=== PATIENT | female | born 1975 | race Hispanic/Latino ===

== ENCOUNTER 2022-07-27 08:54 | Emergency (ER) | payer OTHER ==
--- NOTE | 2022-07-27 09:13 | ER ---
Nurse's Notes [facility] Name: Irasema Leo Age: 47 yrs Sex: Female : 1975 Arrival Date: 07/27/2022 Time: 08:57 Bed Treatment Private MD: Diagnosis: Person with feared health complaint in whom no diagnosis is made Presentation: 07/27 09:10 Chief complaint: Patient states: felt a bug in her left ear. Coronavirus screen: At this time, the client does not indicate any symptoms associated with coronavirus-19. Ebola Screen: Patient negative for fever greater than or equal to 101.5 degrees Fahrenheit, and additional compatible Ebola Virus Disease symptoms Patient denies exposure to infectious person. Patient denies travel to an Ebola-affected area in the 21 days before illness onset. No symptoms or risks identified at this time. Initial Sepsis Screen: Does the patient meet any 2 criteria? No. Patient's initial sepsis screen is negative. Does the patient have a suspected source of infection? No. Patient's initial sepsis screen is negative. Risk Assessment: Do you want to hurt yourself or someone else? Patient reports no desire to harm self or others. Onset of symptoms was July 27, 2022. 09:10 Method Of Arrival: Ambulatory iw 09:10 Acuity: RAMONE 4 iw ED Course: 08:57 Patient arrived in ED. am2 08:57 Joaquin Villar DO is Attending Physician. ms3 09:10 Carolann Read RN is Primary Nurse. iw 09:10 Triage completed. iw 09:12 Joaquin Gtz DO is Referral Physician. ms3 Administered Medications: No medications were administered Outcome: 09:12 Discharge ordered by . ms3 09:32 Patient left the ED. iw Signatures: Carolann Read RN RN Irasema Constantino am2 Joaquin Villar DO DO ms3
--- NOTE | 2022-07-27 09:13 | EDPHYS ---
Physician Documentation [facility] Name: Irasema Leo Age: 47 yrs Sex: Female : 1975 Arrival Date: 07/27/2022 Time: 08:57 Bed Treatment Private MD: ED Physician Joaquin Villar HPI: 07/27 09:13 This 47 yrs old Female presents to ER via Ambulatory with complaints of ms3 Foreign Body In Ear. 09:13 47-year-old female with no past medical history presents after waking up the site of an ms3 insect in her left ear. Patient denies pain. Patient denies any alleviating or inciting factors. Patient states she had her son blow smoke in her ear to attempt to get the insect out.. ROS: 09:13 Constitutional: Negative for fever, and chills. ms3 09:13 Cardiovascular: Negative for chest pain, and palpitations. Respiratory: Negative for shortness of breath, cough, wheezing, and pleuritic chest pain, Abdomen/GI: Negative for abdominal pain, nausea, vomiting, diarrhea, and constipation, MS/Extremity: Negative for injury and deformity, Skin: Negative for injury, rash, and discoloration. 09:13 ENT: Positive for foreign body sensation. 09:13 All other systems are negative. Exam: 09:13 Constitutional: This is a well developed, well nourished patient who is awake, alert, ms3 and in no acute distress. Head/Face: Normocephalic, atraumatic. ENT: Nares patent. No nasal discharge, no septal abnormalities noted. Tympanic membranes are normal and external auditory canals are clear. Oropharynx with no redness, swelling, or masses, exudates, or evidence of obstruction, uvula midline. Mucous membranes moist. Neck: Trachea midline, no cervical lymphadenopathy. Supple, full range of motion without nuchal rigidity, or vertebral point tenderness. No Meningismus. Chest/axilla: Normal chest wall appearance and motion. Nontender with no deformity. Cardiovascular: Regular rate and rhythm with a normal S1 and S2. No gallops, murmurs, or rubs. Normal PMI, no JVD. No pulse deficits. Respiratory: Lungs have equal breath sounds bilaterally, clear to auscultation and percussion. No rales, rhonchi or wheezes noted. No increased work of breathing, no retractions or nasal flaring. Abdomen/GI: Soft, non-tender, with normal bowel sounds. No distension or tympany. No guarding or rebound. No evidence of tenderness throughout. Skin: Warm, dry with normal turgor. Normal color with no rashes, no lesions, and no evidence of cellulitis. MS/ Extremity: Pulses equal, no cyanosis. Neurovascular intact. Full, normal range of motion. Psych: Awake, alert, with orientation to person, place and time. Behavior, mood, and affect are within normal limits. MDM: 09:12 Patient medically screened. ms3 09:13 Data reviewed:. Data reviewed: and as a result, I will discharge patient. ED course: No ms3 insect seen and left ear canal. Left ear was irrigated with normal saline with hydroperoxide. Reexamination of the ear does not reveal foreign body in the ear. Patient follow-up Dr. Gtz in 2 to 3 days. Patient understands agrees with plan. All questions were answered. Return precautions discussed include worsening symptoms, or any other concerns. Administered Medications: No medications were administered Disposition Summary: 07/27/22 09:12 Discharge Ordered Location: Home ms3 Condition: Stable ms3 Diagnosis - Person with feared health complaint in whom no diagnosis is made ms3 Followup: ms3 - With: Joaquin Gtz DO - When: 2 - 3 days - Reason: Discharge Instructions: - Discharge Summary Sheet ms3 - Ear Foreign Body, [id number] ms3 Forms: - Medication Reconciliation Form ms3 - Thank You Letter ms3 - Antibiotic Education ms3 - Work release form iw - Prescription Opioid Use ms3 Signatures: Joaquin Villar DO DO ms3
== END 2022-07-27 09:32 | disposition home or self-care (01) ==
LOC: ER 08:54
DX: Z71.1 Person with feared health complaint in whom no diagnosis is made (principal)
CPT/HCPCS: 99281

== ENCOUNTER 2023-08-27 14:59 | Emergency (ER) | payer OTHER ==
--- OUTSIDE RECORDS SUMMARY | 2023-08-27 15:03 | XMS REPORT | Continuity of Care Document ---
:1975 Author Organization [facility] t Address [address] [facility]. [address] [place] [address] Care Team Providers Name Role Phone Alexa Kim MD Primary Care Physician MD DANIELLA BUTT Attending Clinician Unavailable RIMA VASQUEZ Attending Clinician Unavailable ARNIE BELLE Attending Clinician Unavailable Florencio So Attending Clinician [phone] Valerie Tay Attending Clinician Unavailable Iraida Andrews Attending Clinician Unavailable Status, Fax Attending Clinician Unavailable Rosalina Bell Attending Clinician Unavailable Alondra Zamora Attending Clinician Unavailable Daly Baez Attending Clinician Unavailable Nohemy Trimble Attending Clinician [phone] Kimberlee Walls Attending Clinician [phone] Brandie Guido Attending Clinician Unavailable Virginia Sahu Attending Clinician Unavailable Low Patterson Attending Clinician Unavailable MD DANIELLA BUTT Admitting Clinician Unavailable DANIELLA BUTT Admitting Clinician Unavailable Florencio So Unavailable [phone] Nohemy Trimble Unavailable [phone] Payers Payer Name Policy Type Policy Number Effective Date Expiration Date S our Primary [id number] [facility] 00:00:00 00:00:00 [facility] Primary CI [id number] [address] [facility] 00:00:00 00:00:00 [facility] Problems Condition Condition Condition Status Onset Resolution Last Treating Co mments Source Name Details Category Date Date Treatment Clinician Date Hypokalemi Hypokalemi Disease Active M ethodi a a 6-10 st 00:00: Hospita 00 l Alcohol Alcohol Disease Active Methodi induced induced 6-10 st acute acute 00:00: Hospita pancreatit pancreatit 00 l is is Alcohol Alcohol Disease Active Methodi withdrawal withdrawal 6-10 st delirium delirium 00:00: Hospit a 00 l RUQ pain Condition Active 2018-112019-10-05 Saray, [facility] 1-14 08:03:05 Florencio Communginny 00:00: Mitch ty 00 Health Cough Condition Active 2018-112019-09-23 Saray, [facility] chronic 1-05 19:33:27 Arnold Communi 00:00: Mitch ty 00 Health Trichomona Condition Active 2018-112019-09-23 Rolando Trimble l 0-30 15:36:03 Nohemy Coelho vulvovagin 00:00: ty itis 00 Health Weight Condition Active 2018-112019-09-11 Melinda Trimble gacy loss 0-24 16:06:26 Nohemy Coelho abnormal 00:00: ty 00 Health Positive Condition Active 2018-112019-09-11 Papito Trimbleacy depression 0-24 16:06:26 Nohemy Com quirino screening 00:00: ty 00 Health Screening Condition Active 2018-112019-09-11 Rolando Trimble for anemia 0-24 16:06:26 Nohemy Com quirino 00:00: ty 00 Health Screening Condition Active 2018-112019-09-11 Rolando Trimble for 0-24 16:06:26 Nohemy Coelho thyroid 00:00: ty disorder 00 Health Screening, Condition Active 2018-112019-09-11 Atilio [facility] diabetes 0-24 16:06:26 Nohemy Commu ni mellitus 00:00: ty 00 Health Screening, Condition Active 2018-112019-09-11 Atilio [facility] cervical 0-24 16:06:26 Nohemy Commu ni cancer 00:00: ty 00 Health Screening Condition Active 2018-112019-09-11 Atilio [facility] mammogram 0-24 16:06:26 Nohemy Comm uni 00:00: ty 00 Health Std Condition Active 2018-112019-09-11 Melinda Trimble gacy screening 0-24 16:06:26 Nohemy Comm uni 00:00: ty 00 Health Slab Miller Operator well Condition Active 2018-2019-09-11 Rolando Trimble woman exam 0-24 16:06:26 Nohemy Com quirino 00:00: ty 00 Health Allergies, Adverse Reactions, Alerts Allergy Allergy Status Severity Reaction(s) Onset Inactive Treating Comm ents Source Name Type Date Date Clinician Penicill Propensi Active Swelling Throat Meth ronnell ins ty to 5-[address] adverse 00:00: Hospita reaction 00 l s to drug PENICILL Drug Active High Hives and 2018-11 [place] y [place] allergy Criticali swelling, 0-24 Com quirino (disorde ty stops 00:00: ty r) breathing 00 Health Social History Social Habit Start Date Stop Date Quantity Comments Source History of tobacco Smokes tobacco Me thodist use daily Hospital Sexual orientation Method ist Hospital History of Social 2021-04-28 2021-04-[address] function 00:00:00 00:00:00 Hospital drug use 2019-10-02 2019-10-02 Currently [facility] 13:09:28 13:09:28 [facility] Health alcohol use 2019-10-02 2019-10-02 Currently [facility] 13:09:28 13:09:28 [facility] Health passive cigarette 2019-10-02 2019-10-02 No Legacy smoke exposure 13:09:28 13:09:28 [facility] Health sexual orientation 2019-10-02 2019-10-02 Heterosexual Lega cy 13:09:28 13:09:28 [facility] is there any chance 2019-10-02 2019-10-02 No Legac y that you could be 13:09:28 13:09:28 Communi ty ? Health PHQ2 Questionairre 2019-10-02 2019-10-02 [facility] Score 13:09:28 13:09:28 [facility] Health social history 2019-10-02 2019-10-02 reviewed today [facility] reviewed E&M 13:09:28 13:09:28 [facility] Health social history E&M 2019-10-02 2019-10-02 . Not Lega cy 13:09:28 13:09:28 homeless. Community City: [place]. Health State: [place]. Not employed. Highest education level: high school graduate. Sex at : Female. Sexual orientation: Heterosexual. Gender identity: Female. Sexually Active: Yes. Previous Travel: None. albumin, serum 2019-09-23 2019-09-23 5.0 g/dL [facility] 15:55:00 15:55:00 [facility] smoking, advice to 2019-09-11 2019-09-11 Yes [facility] quit 13:26:31 13:26:31 [facility] patient considered 2019-09-11 2019-09-11 No Legacy to be homeless 13:26:31 13:26:31 [facility] cigarettes, number 2019-09-11 2019-09-11 Legacy smoked per day 13:26:31 13:26:31 [facility] age when patient 2019-09-11 2019-09-11 Legacy began smoking 13:26:31 13:26:31 [facility] drug use, illicit, 2019-09-11 2019-09-11 daily [facility] frequency 13:26:31 13:26:31 [facility] drug use, illicit, 2019-09-11 2019-09-11 marijuana [facility] drug of choice 13:26:31 13:26:31 [facility] sex at 2019-09-11 2019-09-11 Female [facility] 13:26:31 13:26:31 [facility] Sex Assigned At [birth year] [facility] 00:00:00 00:00:00 Hospital Smoking Status Start Date Stop Date Source Smokes tobacco daily 2021-03-28 00:00:00 [facility] Medications Ordered Filled Start Stop Current Ordering Indication Dosage Frequency Signature Comments Components Source Medication Medication Date Date Medication? Clinician (SIG) Name Name (OMEPRAZOLE 2018-11 Yes Arnold take 1 Melinda painting ) 40 MG 1-14 Mitch tablets Communi CPDR 00:00: Saray once per ty 00 day as Health needed (METRONIDAZ 2018-11- No Nohemy 4 tab by [facility] OLE) 500 MG 0-30 11-14 Atilio mouth x 1 Communi TABS 00:00: 00:00 dose ty 00 :00 Health Vital Signs Vital Name Observation Time Observation Value Comments Source oxygen saturation, 2019-10-02 13:09:28 100 /min Melinda painting [facility] oximetry Health blood pressure, 2019-10-02 13:09:28 70 mm[Hg] Legac y [facility] diastolic Health blood pressure, 2019-10-02 13:09:28 106 mm[Hg] Legac [facility] systolic Health respiratory rate E&M 2019-10-02 13:09:28 19 /min [facility] Health pulse rate 2019-10-02 13:09:28 85 /min [facility] Health temperature E&M 2019-10-02 13:09:28 98.7 [degF] [facility] weight E&M 2019-10-02 13:09:28 93 [facility]lb_av[facility] weight in kilograms 2019-10-02 13:09:28 42.27 kg L [facility] E& Health height in 2019-10-02 13:09:28 149.86 cm [facility] centimeters E&M Health temperature site 2019-10-02 13:09:28 oral Lega [facility] oxygen saturation, 2019-09-23 15:07:55 98 /min [facility] oximetry Health blood pressure, 2019-09-23 15:07:55 70 mm[Hg] Legac [facility] diastolic Health blood pressure, 2019-09-23 15:07:55 102 mm[Hg] Legac [facility] systolic Health respiratory rate E&M 2019-09-23 15:07:55 18 /min [facility] Health pulse rate 2019-09-23 15:07:55 74 /min [facility] Health temperature E&M 2019-09-23 15:07:55 98.3 [degF] [facility] weight E&M 2019-09-23 15:07:55 92.25 [lb_av] [facility] Health weight in kilograms 2019-09-23 15:07:55 41.93 kg L [facility] E& Health height in 2019-09-23 15:07:55 149.86 [facility] temperature site 2019-09-23 15:07:55 oral Lega [facility] Health blood pressure, 2019-09-11 13:26:31 110 mm[Hg] Legac [facility] systolic Health pulse rate 2019-09-11 13:26:31 71 /min [facility] Health temperature E&M 2019-09-11 13:26:31 98.4 [degF] Legac [facility] Health height in 2019-09-11 13:26:31 149.86 cm [facility] centimeters E&M Health weight E&M 2019-09-11 13:26:31 97.25 [lb_av] [facility] weight in kilograms 2019-09-11 13:26:31 44.20 kg L [facility] E&M Health respiratory rate E&M 2019-09-11 13:26:31 18 /min [facility] temperature site 2019-09-11 13:26:31 oral Lega blake [facility] Health oxygen saturation, 2019-09-11 13:26:31 99 /min [facility] oximetry Health blood pressure, 2019-09-11 13:26:31 73 mm[Hg] Legac y [facility] diastolic Health Procedures Procedure Date / Time Performing Clinician Source Performed First Vx - Ix admin via 2019-09-11 15:03:55 Nohemy Trimble [facility] ID IM or jet injects Health without counseling by physician Fluzone Quadrivalent IM 2019-09-11 15:03:55 Nohemy Trimble [facility] Prefilled Syringe 0.5 mL Health (PF) Behavioral Health - 2019-09-11 14:46:28 Nohemy Trimble [facility] Psych[facility] Health Vaccines Ordered - Print 2019-09-11 14:21:43 Nohemy Trimble [facility] Consent/Declination Health Forms Plan of Care Planned Activity Planned Date Details Comments Source Future Scheduled 2023-07-21 Screening for [facility] Test 12:57:31 malignant neoplasm of colon (procedure) [code = 343667624] Future Scheduled 2023-07-21 Screening for [facility] Test 12:57:31 malignant neoplasm of colon (procedure) [code = 977921334] Future Scheduled 2023-07-21 Screening for [facility] Test 12:57:31 malignant neoplasm of colon (procedure) [code = 195651936] Future Scheduled 2023-07-21 COVID-19 VACCINE (#1) [facility] Hospital Test 12:57:31 [code = COVID-19 VACCINE (#1)] Future Scheduled 2023-07-21 Pneumococcal Vaccine: [facility] Hospital Test 12:57:31 Pediatrics (0 to 5 Years) and At-Risk Patients (6 to 64 Years) (1 - PCV) [code = Pneumococcal Vaccine: Pediatrics (0 to 5 Years) and At-Risk Patients (6 to 64 Years) (1 - PCV)] Future Scheduled 2023-07-21 Hepatitis C screening [facility] Test 12:57:31 (procedure) [code = 695226034] Future Scheduled 2023-07-[address] [facility] Test 12:57:31 malignant neoplasm of cervix (procedure) [code = 210613031] Future Scheduled 2023-07-[address] [facility] Test 12:57:31 SCREENING [code = BREAST CANCER SCREENING] Future Scheduled 2023-07-[address] [facility] Test 12:57:31 malignant neoplasm of colon (procedure) [code = 641949540] Future Scheduled 2023-07-[address] [facility] Test 12:57:31 malignant neoplasm of colon (procedure) [code = 035066955] Future Scheduled 2023-07-21 INFLUENZA VACCINE (#1) [facility] Test 12:57:31 [code = INFLUENZA VACCINE (#1)] Encounters Start End Encounter Admission Attending Care Care Encounter Source Date/Time Date/Time Type Type Clinicians Facility Department ID 2021-04-28 2021-04-28 Inpatient CHRISTINA, [facility] 064 [id number] [place] 00:00:00 00:00:00 RIMA 184 Method i 2021-03-28 2021-03-28 Emergency SCHEMIDT, [facility] [id number] [place] 00:00:00 00:00:00 ARNIE [address] 2019-10-26 2019-10-26 [facility] 00:00:00 00:00:00 Visit Florencio Parra [id number] Co denilson Meyer [id number] [facility] 2019-10-02 2019-10-05 Office Florencio So [facility] H Encounter/ Legacy 00:00:00 00:00:00 Visit Valerie Tay [id number] Iraida Cyr [id number] [facility] 2019-10-02 2019-10-02 Office Status, Fax [facility] Legacy Encoun ter/ Legacy 00:00:00 00:00:00 Visit [facility] [id number] [facility] [id number] 2019-10-02 2019-10-02 Office Status, Fax GHADA [facility] Encoun ter/ Legacy 00:00:00 00:00:00 Visit [facility] [id number] [facility] [id number] [facility] Health 2019-10-02 2019-10-02 Office GHADA So [facility] Adult Encou nter/ Legacy 00:00:00 00:00:00 Visit [facility] [id number] Co denilson Meyer [id number] Health 2019-09-24 2019-09-24 Office BellGHADA fox Legacy Encounter/ Legacy 00:00:00 00:00:00 Visit [facility] [id number] [facility] [id number] Services Health 2019-09-23 2019-09-23 Office GHADA So [facility] Adult Encou nter/ [facility] 00:00:00 00:00:00 Visit [facility] [id number] Co denilson Meyer [id number] Health 2019-09-23 2019-09-23 Office GHADA So [place] Adult Encou nter/ [facility] 00:00:00 00:00:00 Visit [facility] [id number] Co denilson Meyer [id number] Health 2019-09-23 2019-09-23 Office Florencio So [facility] B Adult Encounter/ [facility] 00:00:00 00:00:00 Visit [facility] [id number] [address] [place] [address] [id number] Health 2019-09-18 2019-09-18 Office MARTINA Baez [place] Encoun ter/ Legacy 00:00:00 00:00:00 Visit Daly Rasmussen [id number] Com quirino Mary [id number] ty TRANSPORTATION ASSISTANT Health 2019-09-17 2019-09-17 Office MARTINA Trimble Legacy Encounter/ Legacy 00:00:00 00:00:00 Visit Nohemy Rasmussen [id number] Com quirino Mary [id number] ty Pediatrics Healt h 2019-09-17 2019-09-17 Office MARTINA Baez [place] Encoun ter/ [facility] 00:00:00 00:00:00 Visit Daly Rasmussen [id number] Com quirino Mary [id number] ty TRANSPORTATION ASSISTANT Health 2019-09-17 2019-09-17 Office MARTINA Trimble Legacy Encounter/ Legacy 00:00:00 00:00:00 Visit Nohemy [facility] [id number] Com quirino Mary [id number] ty Pediatrics Healt h 2019-09-17 2019-09-17 Office MARTINA Trimble Legacy Encounter/ Legacy 00:00:00 00:00:00 Visit Nohemy Grady [id number] Com quirino Mary [id number] ty TRANSPORTATION ASSISTANT Health 2019-09-16 2019-09-16 Office Nestor GHADAKrystal [facility] Encoun ter/ Legacy 00:00:00 00:00:00 Visit Daly Garber [id number] Com quirino Mary [id number] ty TRANSPORTATION ASSISTANT Health 2019-09-11 2019-09-11 Office Nohemy Trimble GHADAKrystal Legacy En counter/ Legacy 00:00:00 00:00:00 Visit NestorDaly meadows Garber [id number] Communi Mary [id number] ty Pediatrics Healt h 2019-09-11 2019-09-11 Office Nohemy Trimble GHADAKrystal Legacy En counter/ Legacy 00:00:00 00:00:00 Visit Daly Baez Garber [id number] Communi Mary [id number] ty Pediatrics Healt h 2019-09-11 2019-09-11 Office Nohemy Trimble GHADAKrystal [facility] En counter/ Legacy 00:00:00 00:00:00 Visit Nestor, Daly Garber [id number] Communi Mary [id number] ty Pediatrics Healt h 2019-09-11 2019-09-11 Office Atilio GHADAKrystal Legacy Encounter/ Legacy 00:00:00 00:00:00 Visit Nohemy Garber [id number] Com quirino Mary [id number] ty TRANSPORTATION ASSISTANT Health 2019-09-11 2019-09-11 Office Nohemy Trimble GHADA Legacy En counter/ Legacy 00:00:00 00:00:00 Visit Kimberlee Walls Garber [id number] Brandie Miguel Mary [id number] ty Kign Virginia Diego TRANSPORTATION ASSISTANT [facility] Low [place] Results Test Description Test Time Test Comments Results Result Comments Source SARS-CoV-2 (COVID-19) RNA [Presence] in Respiratory sp ecimen by 2021-04-28 04:25:31 DIMITRIS with probe detection Test Item Value Reference Range Interpretation Comme nts SARS-CoV-2 (COVID-19) RNA [Presence] in Respiratory Not detected No t-Detected specimen by DIMITRIS with probe detection (test code = 75184-1) Whether patient is employed in a healthcare setting (test code = 50600-6) Whether the patient has symptoms related to condition of interest (test code = 32836-3) Patient was hospitalized because of this condition (test code = 96286-4) Whether the patient was admitted to intensive care unit (ICU) for condition of interest (test code = 91779-1) Whether patient resides in a congregate care setting (test code = 35397-8) KELLIE SNOWpatitis B surface [id number] 15:55:00 Test Item Value Reference Range Interpretation Comments hepatitis B surface antigen (test Negative Negative code = 79) [facility] antibody, [id number] 15:55:00 Test Item Value Reference Range Interpretation Comments hepatitis C antibody, serum (test code <0.1 0.0-0.9 = 5199-5) [facility] (Chemiluminescent Microparticle Immuno Assay) 2019-09-23 15:55:00 Test Item Value Reference Range Interpretation Comments HIV-CMIA (Chemiluminescent Non Reactive Non Reactive Microparticle Immuno Assay) (test code = 325809) [facility] (SGPT), [id number] 15:55:00 Test Item Value Reference Range Interpretation Comments alanine aminotransferase (SGPT), serum 10 1/L 0-32 (test code = 1742-6) [facility]ate aminotransferase (SGOT), [id number] 15:55:00 Test Item Value Reference Range Interpretation Comments aspartate aminotransferase (SGOT), 18 1/L 0-40 serum (test code = 1920-8) [facility] phosphatase, [id number] 15:55:00 Test Item Value Reference Range Interpretation Comments alkaline phosphatase, serum (test code 66 1/L 39-117 = 1783-0) [facility], serum, [id number] 15:55:00 Test Item Value Reference Range Interpretation Comments bilirubin, serum, total (test code 0.4 mg/dL 0.0-1.2 = 1975-2) [facility] Healthalbumin/globulin ratio, [id number] 15:55:00 Test Item Value Reference Range Interpretation Comments albumin/globulin ratio, 1.7 (unknown unit) 1.2-2.2 serum (test code = 1759-0) [facility] Healthglobulin, [id number] 15:55:00 Test Item Value Reference Range Interpretation Comments globulin, serum (test code 2.9 (unknown unit) 1.5-4.5 = 2336-6) [facility] Healthalbumin, [id number] 15:55:00 Test Item Value Reference Range Interpretation Comments albumin, serum (test code = 1751-7) 5.0 g/dL 3.5-5.5 [facility] Healthprotein, total, [id number] 15:55:00 Test Item Value Reference Range Interpretation Comments protein, total, serum (test code = 7.9 g/dL 6.0-8.5 2885-2) [facility] Healthcalcium, [id number] 15:55:00 Test Item Value Reference Range Interpretation Comments calcium, serum (test code = 1999-8) 9.8 mg/dL 8.7-10.2 [facility], venous [id number] 15:55:00 Test Item Value Reference Range Interpretation Comments carbon dioxide, venous blood (test 24 mmol/L 20-29 code = 2026-1) [facility] Healthchloride, [id number] 15:55:00 Test Item Value Reference Range Interpretation Comments chloride, serum (test code = 100 mmol/L 96-106 5-0) [facility] Healthpotassium, [id number] 15:55:00 Test Item Value Reference Range Interpretation Comments potassium, serum (test code = 3.8 mmol/L 3.5-5.2 2823-3) [facility]alsodium, [id number] 15:55:00 Test Item Value Reference Range Interpretation Comments sodium, serum (test code = 2951-2) 140 mmol/L 134-144 [facility] nitrogen/creatinine ratio, [id number] 15:55:00 Test Item Value Reference Range Interpretation Comments urea nitrogen/creatinine 8 (unknown unit) 9-23 L ratio, serum (test code = 3097-3) [facility]GFR if [id number] 15:55:00 Test Item Value Reference Range Interpretation Comments eGFR if 98 mL/min/{1.73 m2} >59 (test code = 17954-0) [facility] HospitalEstimated Glomerular Filtration Rate (calc)2019-09-23 15:55:00 Test Item Value Reference Range Interpretation Comments Estimated Glomerular 85 mL/min/{1.73 m2} >59 Filtration Rate (calc) (test code = 48565-6) [facility]inine, [id number] 15:55:00 Test Item Value Reference Range Interpretation Comments creatinine, serum (test code = 0.85 mg/dL 0.57-1.00 2160-0) [facility] nitrogen, [id number] 15:55:00 Test Item Value Reference Range Interpretation Comments urea nitrogen, blood (test code = 7 mg/dL 6-24 3094-0) [facility] glucose, [id number] 15:55:00 Test Item Value Reference Range Interpretation Comments blood glucose, random (test code = 93 mg/dL 65-99 2339-0) [facility] HospitalNeisseria gonorrhoeae DNA [id number] 15:22:00 Test Item Value Reference Range Interpretation Comments Neisseria gonorrhoeae DNA probe Negative Negative (test code = 92272-8) [facility]chlamydia DNA [id number] 15:22:00 Test Item Value Reference Range Interpretation Comments chlamydia DNA probe (test code = Negative Negative 98807-9) [facility]hemoglobin A1C, blood, as % of total [id number] 14:59:00 Test Item Value Reference Range Interpretation Comments hemoglobin A1C, blood, as % of total 5.0 % 4.8-5.6 hemoglobin (test code = 4548-4) [facility]althyroxine, serum, [id number] 14:59:00 Test Item Value Reference Range Interpretation Comments thyroxine, serum, free (test code 1.12 ng/dL 0.82-1.77 = 3024-7) [facility] Hospitalthyroid stimulating hormone, [id number] 14:59:00 Test Item Value Reference Range Interpretation Comments thyroid stimulating hormone, 0.422 u[IU]/mL 0.450-4.500 L serum (test code = 3016-3) [facility] Hospitalimmature granulocytes, percentage of total cells, blood 2019-09-11 14:59:00 Test Item Value Reference Range Interpretation Comments immature granulocytes, percentage of 0 % total cells, blood (test code = 26828-0) [facility]basophil count, [id number] 14:59:00 Test Item Value Reference Range Interpretation Comments basophil count, absolute (test 0.0 x10E3/uL 0.0-0.2 code = 88181-1) [facility] HospitalEosinophil Absolute [id number] 14:59:00 Test Item Value Reference Range Interpretation Comments Eosinophil Absolute Count (test 0.1 X10E3/UL 0.0-0.4 code = 08023-9) [facility] Hospitalmonocyte count, blood, [id number] 14:59:00 Test Item Value Reference Range Interpretation Comments monocyte count, blood, automated 0.3 X10E3/UL 0.1-0.9 (test code = 742-7) [facility]allymph[facility] count, blood, [id number] 14:59:00 Test Item Value Reference Range Interpretation Comments lymphocyte count, blood, 1.7 X10E3/UL 0.7-3.1 automated (test code = 731-0) [facility] HospitalAbsolute [id number] 14:59:00 Test Item Value Reference Range Interpretation Comments Absolute Neutrophils (test code 2.8 X10E3/UL 1.4-7.0 = 24144-6) [facility]ophils as percent of blood [id number] 14:59:00 Test Item Value Reference Range Interpretation Comments basophils as percent of blood 0 % leukocytes (test code = 707-0) [facility] Hospitaleosinophils as percent of blood [id number] 14:59:00 Test Item Value Reference Range Interpretation Comments eosinophils as percent of blood 2 % leukocytes (test code = 713-8) [facility] [id number] 14:59:00 Test Item Value Reference Range Interpretation Comments monocytes as percent of blood 6 % leukocytes (test code = 5905-5) [facility] percent [facility] blood [id number] 14:59:00 Test Item Value Reference Range Interpretation Comments lymphocytes as percent of blood 35 % leukocytes (test code = 736-9) [facility] percent [facility] blood [id number] 14:59:00 Test Item Value Reference Range Interpretation Comments neutrophils as percent of blood 57 % leukocytes (test code = 770-8) [facility] [id number] 14:59:00 Test Item Value Reference Range Interpretation Comments platelet count (test code = 215 X10E3/UL 150-450 777-3) [facility] [id number] 14:59:00 Test Item Value Reference Range Interpretation Comments red blood cell distribution width 13.1 % 12.3-15.4 (test code = 788-0) [facility] corpuscular hemoglobin concentration, [id number] 14:59:00 Test Item Value Reference Range Interpretation Comments mean corpuscular hemoglobin 34.4 G/DL 31.5-35.7 concentration, RBC (test code = 786-4) [facility] corpuscular hemoglobin, [id number] 14:59:00 Test Item Value Reference Range Interpretation Comments mean corpuscular hemoglobin, RBC 33.3 pg 26.6-33.0 H (test code = 785-6) [facility] corpuscular volume, [id number] 14:59:00 Test Item Value Reference Range Interpretation Comments mean corpuscular volume, RBC (test code 97 fL 79-97 = 787-2) [facility], [id number] 14:59:00 Test Item Value Reference Range Interpretation Comments hematocrit, blood (test code = 4544-3) 37.8 % 34.0-46.6 [facility], [id number] 14:59:00 Test Item Value Reference Range Interpretation Comments hemoglobin, blood (test code = 13.0 g/dL 11.1-15.9 718-7) [facility] (RBC) [id number] 14:59:00 Test Item Value Reference Range Interpretation Comments erythrocyte (RBC) count (test 3.90 X10E6/UL 3.77-5.28 code = 789-8) [facility] count, [id number] 14:59:00 Test Item Value Reference Range Interpretation Comments leukocyte count, blood (test 4.9 X10E3/UL 3.4-10.8 code = 6690-2) [facility] HCG, urine, [id number] 13:26:31 Test Item Value Reference Range Interpretation Comments beta HCG, urine, semiquantitative negative (test code = 2106-3) [facility]
[2023-08-27] MEDS ORDERED: ONDANSETRON 4 MG/2 ML VIAL ONE (16:00)
[2023-08-27] MEDS ORDERED: NA CHLORIDE 0.9% 1,000 ML ONE (16:01)
[2023-08-27 16:15] LABS: Absolute Lymphocytes (CBC) 1.9 K/uL (0.7-4.9); Hematocrit 37.5 % (36.0-45.0); Lymphocytes % 26.3 % (15.3-44.8); MCV 99.4 fL (80-100); MPV 7.5 fL (7.6-11.3); Platelets 225 thou/uL (152-406); RBC Red Blood Cell Count 3.77 M/uL (3.86-4.86)
[2023-08-27 16:29] LABS: Albumin 4.1 g/dL (3.4-5.0); Bilirubin Total 0.5 mg/dL (0.2-1.0); Potassium 3.6 mEq/L (3.5-5.1)
[2023-08-27 17:19] LABS: Specific Gravity 1.015 (1.005-1.030)
[2023-08-27 17:21] LABS: Specific Gravity 1.015 (1.005-1.030); Urine Bacteria <20 /HPF (<20); Urine Bilirubin NEGATIVE (Negative); Urine Blood Negative (Negative); Urine Clarity Turbid (Clear); Urine Color Light-Yellow (Yellow); Urine Glucose NEGATIVE (Negative); Urine Mucus 2+ /HPF (None Seen); Urine Protein NEGATIVE (Negative); Urine RBC <5 /HPF (None Seen); Urine Urobilinogen Normal (Normal); Urine pH 5.5 (5.0-7.0)
--- NOTE | 2023-08-27 17:29 | ER ---
Nurse's Notes [facility] Name: Irasema Leo Age: 48 yrs Sex: Female : 1975 Arrival Date: 08/27/2023 Time: 14:59 Bed DIS1 Private MD: Diagnosis: Nausea with vomiting, unspecified;Diarrhea, unspecified;Muscle weakness (generalized);Dehydration Presentation: 08/27 15:08 Chief complaint: Patient states: "for the past 3-4 days, I've been sick with N/V/D. I mb9 feel fatigued and can't focus." Pt denies abdominal pain. Coronavirus screen: Vaccine status: Patient reports receiving the 2nd dose of the covid vaccine. Ebola Screen: No symptoms or risks identified at this time. Initial Sepsis Screen: Does the patient meet any 2 criteria? No. Patient's initial sepsis screen is negative. Does the patient have a suspected source of infection? No. Patient's initial sepsis screen is negative. Risk Assessment: Do you want to hurt yourself or someone else? Patient reports no desire to harm self or others. Onset of symptoms was 2022. 15:08 Acuity: RAMONE 3 mb9 15:08 Method Of Arrival: Ambulatory mb9 Triage Assessment: 15:11 General: Appears uncomfortable, Behavior is cooperative. Pain: Denies pain. EENT: No mb9 signs and/or symptoms were reported regarding the EENT system. Neuro: Greenberg Agitation-Sedation Scale (RASS): 0 - Alert and Calm Level of Consciousness is awake, alert, obeys commands, Oriented to person, place, time, situation, Appropriate for age. Cardiovascular: Patient's skin is warm and dry. Respiratory: Airway is patent Respiratory effort is even, unlabored, Respiratory pattern is regular, symmetrical. GI: Reports diarrhea, nausea, vomiting. : No signs and/or symptoms were reported regarding the genitourinary system. Derm: Skin is pink, warm \\T\\ dry. Musculoskeletal: Range of motion: intact in all extremities. Historical: - Allergies: 15:12 PENICILLINS; mb9 - Home Meds: 15:12 None [Active]; mb9 - PMHx: 15:12 None; mb9 - PSHx: 15:12 None; mb9 - Immunization history:: Adult Immunizations up to date. - Social history:: Smoking status: Patient reports the use of cigarette tobacco products, smokes one-half pack cigarettes per day. - Family history:: not pertinent. - Hospitalizations: : No recent hospitalization is reported. Screenin:15 [facility] ED Fall Risk Assessment (Adult) Score/Fall Risk Level 0 - 2 = Low Risk. Abuse eh3 screen: Denies threats or abuse. Denies injuries from another. Nutritional screening: Has had N/V for 3 or more days. Tuberculosis screening: No symptoms or risk factors identified. Assessment: 15:15 General: Appears in no apparent distress. uncomfortable, Behavior is calm, cooperative, eh3 appropriate for age. Pain: Denies pain. Neuro: Level of Consciousness is awake, alert, obeys commands, Oriented to person, place, time, situation. Cardiovascular: Capillary refill < 3 seconds Patient's skin is warm and dry. Respiratory: Airway is patent Respiratory effort is even, unlabored, Respiratory pattern is regular, symmetrical. GI: Abdomen is round non-distended, Reports intolerance of fluids, intolerance of food, nausea, vomiting. : Denies burning with urination, urinary frequency, urgency. Derm: Skin is pink, warm \\T\\ dry. Musculoskeletal: Circulation, motion, and sensation intact. 16:00 Reassessment: Patient appears in no apparent distress at this time. Patient and/or eh3 family updated on plan of care and expected duration. Pain level reassessed. Patient is alert, oriented x 3, equal unlabored respirations, skin warm/dry/pink. 17:45 Reassessment: Patient appears in no apparent distress at this time. Patient and/or iw family updated on plan of care and expected duration. Pain level reassessed. Patient is alert, oriented x 3, equal unlabored respirations, skin warm/dry/pink. Patient states feeling better. Patient states symptoms have improved. Vital Signs: 15:08 BP 130 / 100; Pulse 99; Resp 18; Temp 98.4; Pulse Ox 100% on R/A; Weight 70.31 kg; mb9 Height 4 ft. 11 in. ; 16:00 BP 156 / 91; Pulse 83; Resp 18; Pulse Ox 100% on R/A; eh3 15:08 Body Mass Index 31.31 (70.31 kg, 149.86 cm) mb9 ED Course: 15:02 Patient arrived in ED. mg5 15:03 Timoteo Maria MD is Attending Physician. rn 15:10 Triage completed. mb9 15:11 Arm band placed on. mb9 15:36 Jayleen Mae RN is Primary Nurse. eh3 15:45 Missed attempt(s): 22 gauge in left antecubital area. Bleeding controlled, band aid eh3 applied, catheter tip intact. 16:15 Inserted saline lock: 22 gauge in right forearm, using aseptic technique. em1 16:23 Flu Sent. eh3 16:23 SARS-COV-2 RT PCR Sent. eh3 17:45 Patient has correct armband on for positive identification. iw 17:45 No provider procedures requiring assistance completed. IV discontinued, intact, iw bleeding controlled, No redness/swelling at site. Pressure dressing applied. Administered Medications: 16:10 Drug: NS 0.9% IV 1000 ml IV at 1 bolus Per protocol; 1000 mL bolus Route: IV; Rate: 1 eh3 bolus; Site: right forearm; 16:10 Drug: Ondansetron IVP 4 mg IVP once; over 2 minutes Route: IVP; Site: right forearm; eh3 Medication: 17:45 VIS not applicable for this client. iw Outcome: 17:28 Discharge ordered by MD. rn 17:45 Discharged to home ambulatory, iw 17:45 Condition: good 17:45 Discharge instructions given to patient, Instructed on discharge instructions, follow up and referral plans. medication usage, Demonstrated understanding of instructions, follow-up care, medications, Prescriptions given X 1, 17:46 Patient left the ED. iw Signatures: Carolann Read RN RN iw Timoteo Maria MD MD rn Martinez, Eric em1 Jayleen Mae RN RN 3 Renee Grey RN RN 9 Barbara Magana mg5 Corrections: (The following items were deleted from the chart) 15:10 15:08 BP 150 / 103; Pulse 99bpm; Resp 18bpm; Pulse Ox 100% RA; Temp 98.4F; mb9 mb9 15:11 15:08 BP 150 / 103; Pulse 99bpm; Resp 18bpm; Pulse Ox 100% RA; Temp 98.4F; 70.31 kg; mb9 Height 4 ft. 11 in.; BMI: 31.3; mb9
--- NOTE | 2023-08-27 17:29 | EDPHYS ---
Physician Documentation [facility] Name: Irasema Leo Age: 48 yrs Sex: Female : 1975 Arrival Date: 08/27/2023 Time: 14:59 Bed DIS1 Private MD: ED Physician Timoteo Maria HPI: 08/27 15:14 This 48 yrs old Female presents to ER via Ambulatory with complaints of rn Diarrhea, Nausea, Weakness, Headache. 15:14 The patient presents to the emergency department with nausea, vomiting, diarrhea. rn Onset: The symptoms/episode began/occurred 3 day(s) ago. Possible causes: unknown. The symptoms are aggravated by nothing. The symptoms are alleviated by nothing. Severity of symptoms: At their worst the symptoms were moderate in the emergency department the symptoms are unchanged. The patient has not experienced similar symptoms in the past. Patient reports 3 days of nausea/vomiting/diarrhea. No abdominal pain. No fever. No runny nose or sore throat. Reports came in for generalized weakness. No longer vomiting but states hard to keep down fluids enough to hydrate. No blood in stool.. Historical: - Allergies: 15:12 PENICILLINS; mb9 - Home Meds: 15:12 None [Active]; mb9 - PMHx: 15:12 None; mb9 - PSHx: 15:12 None; mb9 - Immunization history:: Adult Immunizations up to date. - Social history:: Smoking status: Patient reports the use of cigarette tobacco products, smokes one-half pack cigarettes per day. - Family history:: not pertinent. - Hospitalizations: : No recent hospitalization is reported. ROS: 15:14 Constitutional: Negative for fever, chills, and weight loss, Cardiovascular: Negative rn for chest pain, palpitations, and edema, Respiratory: Negative for shortness of breath, cough, wheezing, and pleuritic chest pain, Abdomen/GI: Positive for nausea and diarrhea Neuro: Positive for generalized weakness Exam: 15:14 Constitutional: This is a well developed, well nourished patient who is awake, alert, rn and in no acute distress. Head/Face: Normocephalic, atraumatic. ENT: Dry mucous membranes Cardiovascular: Tachycardic, regular. No pulse deficits. Respiratory: No increased work of breathing, no retractions or nasal flaring. Abdomen/GI: Soft, non-tender MS/ Extremity: Pulses equal, no cyanosis. Neurovascular intact. Full, normal range of motion. Equal circumference. Neuro: Awake and alert, GCS 15 Vital Signs: 15:08 BP 130 / 100; Pulse 99; Resp 18; Temp 98.4; Pulse Ox 100% on R/A; Weight 70.31 kg; mb9 Height 4 ft. 11 in. ; 16:00 BP 156 / 91; Pulse 83; Resp 18; Pulse Ox 100% on R/A; eh3 15:08 Body Mass Index 31.31 (70.31 kg, 149.86 cm) mb9 MDM: 15:03 Patient medically screened. rn 17:27 Differential diagnosis: gastritis, pancreatitis, viral gastroenteritis, rn gastroenteritis. Data reviewed: vital signs, nurses notes, lab test result(s), and as a result, I will discharge patient. Counseling: I had a detailed discussion with the patient and/or guardian regarding the historical points, exam findings, and any diagnostic results supporting the discharge/admit diagnosis, lab results, the need for outpatient follow up, to return to the emergency department if symptoms worsen or persist or if there are any questions or concerns that arise at home. Response to treatment: the patient's symptoms have markedly improved after treatment, and as a result, I will discharge patient. Special discussion: I discussed with the patient/guardian in detail that at this point there is no indication for admission to the hospital. It is understood, however, that if the symptoms persist or worsen the patient needs to return immediately for re-evaluation. 08/27 15:13 Order name: CBC with Diff; Complete Time: 16:27 rn 08/27 15:13 Order name: CMP; Complete Time: 16:32 rn 08/27 15:13 Order name: Lipase; Complete Time: 16:32 rn 08/27 15:13 Order name: Test, Urine; Complete Time: 17:27 rn 08/27 15:13 Order name: Urinalysis w/ reflexes; Complete Time: 17:27 rn 08/27 15:13 Order name: SARS-COV-2 RT PCR; Complete Time: 17:09 rn 08/27 15:13 Order name: Flu; Complete Time: 16:55 rn 08/27 15:13 Order name: IV Saline Lock; Complete Time: 16:15 rn 08/27 15:13 Order name: Labs collected and sent; Complete Time: 16:04 rn Administered Medications: 16:10 Drug: NS 0.9% IV 1000 ml IV at 1 bolus Per protocol; 1000 mL bolus Route: IV; Rate: 1 eh3 bolus; Site: right forearm; 16:10 Drug: Ondansetron IVP 4 mg IVP once; over 2 minutes Route: IVP; Site: right forearm; eh3 Disposition Summary: 08/27/23 17:28 Discharge Ordered Notes: Location: Home rn Problem: new rn Symptoms: have improved rn Condition: Stable rn Diagnosis - Nausea with vomiting, unspecified rn - Diarrhea, unspecified rn - Muscle weakness (generalized) rn - Dehydration rn Followup: rn - With: Private Physician - When: As needed - Reason: Recheck today's complaints, Re-evaluation by your physician Discharge Instructions: - Discharge Summary Sheet rn - Dehydration, Adult rn - Diarrhea, Adult rn - Nausea and Vomiting, Adult rn - Weakness rn Forms: - Work release form iw - Medication Reconciliation Form rn - Thank You Letter rn - 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
[2023-08-27 17:54] VITALS: TEMP 98.4; O2SAT 100
[2023-08-27 18:00] VITALS: BP 156/91
== END 2023-08-27 17:46 | disposition home or self-care (01) ==
LOC: ER 14:59
DX: R11.2 Nausea with vomiting, unspecified (principal); E86.0 Dehydration; M62.81 Muscle weakness (generalized); R19.7 Diarrhea, unspecified; Z20.822 Contact with and (suspected) exposure to COVID-19; Z88.0 Allergy status to penicillin
CPT/HCPCS: 85025; 81001; 36415; 81025; 83690; 80053; 87635; 87804 ×2; 96374; 99284; J2405; J7030